=== PATIENT | female | born 2000 | race Caucasian/White ===

== ENCOUNTER 2023-05-17 21:14 | Emergency (ER) | payer MEDICAID ==
[~2023-05-17] VITALS: Ht 162.6 cm; Wt 73.0 kg
[2023-05-17 21:34] VITALS: BP 104/63; PULSE 56; RESP 17; TEMP 98.2; O2SAT 100
[2023-05-17 22:09] LABS: HCG SCREEN NEGATIVE
== END 2023-05-18 00:19 | disposition home or self-care (01) ==
LOC: ER 21:14
DX: N93.8 Other specified abnormal uterine and vaginal bleeding (principal); R10.2 Pelvic and perineal pain
CPT/HCPCS: 76830; 76856; 81025; 84703; 99284

== ENCOUNTER 2023-10-31 07:13 | Emergency (ER) | payer MEDICAID, OTHER ==
[~2023-10-31] VITALS: Ht 165.1 cm; Wt 62.0 kg
[2023-10-31 07:22] VITALS: O2SAT 98
[2023-10-31] MEDS ORDERED: CEFTRIAXONE SODIUM 500 MG/VIAL IM ONE (09:15)
[2023-10-31] MEDS ORDERED: LIDOCAINE HCL 1% 20ML VIAL (Pyxis) INJ INFIL ONE (09:15)
[2023-10-31 09:40] LABS: CLARITY URINE CLEAR (CLEAR); COLOR URINE YELLOW (YELLOW); GLUCOSE URINE NEGATIVE (NEGATIVE); KETONES URINE TRACE (NEGATIVE); LEUKOCYTE ESTERASE URINE NEGATIVE (NEGATIVE); NITRITE URINE NEGATIVE (NEGATIVE); OCCULT BLOOD URINE 1+ (NEGATIVE); PH URINE 5.5 (4.5-8.0); PROTEIN URINE NEGATIVE (NEGATIVE); SPECIFIC GRAVITY URINE 1.033 (1.005-1.030)
[2023-10-31 10:05] LABS: BACTERIA URINE 1+; MUCUS URINE 1+ /lpf (< = 2+); SQUAMOUS EPITHELIAL CELL URINE 1+ /lpf (RARE/1+)
[2023-10-31 10:06] LABS: RBC URINE 0-2 /hpf (0-2); WBC URINE 0-2 /hpf (0-2)
[2023-10-31 10:20] LABS: BASOPHILS % 0.8 % (0.0-2.0); DIFFERENTIAL COMMENT 0; EOSINOPHILS % 1.9 % (0.0-5.0); HEMATOCRIT. 36.7 % (36.0-48.0); HEMOGLOBIN. 11.7 g/dL (12.0-16.0); LYMPHOCYTES % 28.5 % (20.0-50.0); MEAN CORPUSCULAR HGB CONC 31.8 g/dL (31.0-37.0); MEAN CORPUSCULAR VOLUME 84.9 fL (81.0-99.0); MEAN PLATELET VOLUME 9.9 fl (7.4-10.4); NEUTROPHILS % 60.8 % (40.0-76.0); PLATELET 150 x1000/uL (130-400); RED BLOOD CELL COUNT 4.33 mill/uL (4.2-5.4); RED CELL DISTRIBUTION WIDTH 14.8 % (11.6-14.6); WHITE BLOOD COUNT 7.8 x1000/uL (4.5-11.0)
[2023-10-31 10:36] LABS: ALANINE AMINOTRANSFERASE < 7 IU/L (10-49); ALBUMIN 4.1 g/dL (3.2-4.8); ASPARTATE AMINOTRANSFERASE 13 IU/L (<34); B-HCG QUANTITATIVE 50 mIU/mL (<3); BILIRUBIN TOTAL 0.6 mg/dL (0.1-1.0); CALCIUM 9.1 mg/dL (8.7-10.4); CARBON DIOXIDE 23 mEq/L (21-32); CHLORIDE 106 mEq/L (98-107); CREATININE 0.7 mg/dL (0.6-1.0); GLUCOSE 105 mg/dL (70-105); POTASSIUM 3.8 mEq/L (3.5-5.1); PROTEIN TOTAL 7.3 g/dL (6.0-8.3); SODIUM 136 mEq/L (136-145); UREA NITROGEN BLOOD 8 mg/dL (9-23)
[2023-10-31] MEDS ORDERED: CEFTRIAXONE SODIUM 500 MG/VIAL IM NR (13:00)
[2023-10-31] MEDS ORDERED: LIDOCAINE HCL/PF 1% 10 MG/ML 5ML VIAL INFIL NR (13:00)
[2023-10-31 13:03] LABS: *AMPHETAMINES SCREEN URINE NEGATIVE (NEGATIVE); *BARBITURATES SCREEN URINE NEGATIVE (NEGATIVE); *BENZODIAZEPINES SCREEN URINE NEGATIVE (NEGATIVE); *COCAINE SCREEN URINE NEGATIVE (NEGATIVE); ECSTASY MDMA SCREEN URINE CONF.TEST INDICATED (NEGATIVE); METHADONE URINE SCREEN Neg (NEGATIVE); OPIATES URINE SCREEN NEGATIVE (NEGATIVE); PHENCYCLIDINE URINE SCREEN NEGATIVE (NEGATIVE)
[2023-10-31] MEDS ORDERED: AZIT1PAC9 MT (13:43)
[2023-10-31 14:01] VITALS: BP 129/76; PULSE 92; RESP 18; TEMP 98.6
[2023-11-02 04:09] LABS: CHLAMYDIA TRACHOMATIS NAA Negative (Negative); NEISSERIA GONORRHOEAE NAA Negative (Negative)
== END 2023-10-31 14:02 | disposition home or self-care (01) ==
LOC: ER 07:13
DX: J06.9 Acute upper respiratory infection, unspecified (principal); N39.0 Urinary tract infection, site not specified; J02.9 Acute pharyngitis, unspecified
CPT/HCPCS: 36415; 71045; 76801; 80053; 80305; 81003; 81025; 84702; 85025; 86850; 86900; 87491; 87591; 99284

== ENCOUNTER 2025-04-01 17:22 | Emergency (ER) | payer OTHER ==
[~2025-04-01] VITALS: Ht 165.1 cm; Wt 82.0 kg
[~2025-04-01 17:22] MED LIST: AZIT1PAC9 MT
[2025-04-01 17:23] VITALS: PULSE 105; RESP 18; O2SAT 98
[2025-04-01 17:27] VITALS: BP 115/64; TEMP 36.9; O2SAT 99
[2025-04-01 18:16] LABS: CLARITY URINE CLEAR (CLEAR); COLOR URINE YELLOW (YELLOW); GLUCOSE URINE NEGATIVE (NEGATIVE); KETONES URINE NEGATIVE (NEGATIVE); LEUKOCYTE ESTERASE URINE NEGATIVE (NEGATIVE); NITRITE URINE NEGATIVE (NEGATIVE); OCCULT BLOOD URINE NEGATIVE (NEGATIVE); PROTEIN URINE NEGATIVE (NEGATIVE); SPECIFIC GRAVITY URINE 1.011 (1.005-1.030)
== END 2025-04-01 20:37 | disposition home or self-care (01) ==
LOC: ER 17:22
DX: Z00.8 Encounter for other general examination (principal); F20.9 Schizophrenia, unspecified; F32.A Depression, unspecified; Z79.899 Other long term (current) drug therapy; Z91.011 Allergy to milk products
CPT/HCPCS: 81003; 81025; 99283

== ENCOUNTER 2025-04-11 17:56 | Emergency (ER) | payer OTHER ==
[~2025-04-11] VITALS: Ht 165.1 cm; Wt 78.0 kg
[2025-04-11 18:01] VITALS: O2SAT 98
[2025-04-11 18:04] VITALS: BP 102/69; PULSE 73; RESP 16; TEMP 36.7; O2SAT 98
[2025-04-11 19:42] LABS: CLARITY URINE CLOUDY (CLEAR); COLOR URINE DARK YELLOW (YELLOW); GLUCOSE URINE NEGATIVE (NEGATIVE); KETONES URINE TRACE (NEGATIVE); LEUKOCYTE ESTERASE URINE NEGATIVE (NEGATIVE); NITRITE URINE NEGATIVE (NEGATIVE); OCCULT BLOOD URINE NEGATIVE (NEGATIVE); PH URINE 5.5 (4.5-8.0); PROTEIN URINE TRACE (NEGATIVE); SPECIFIC GRAVITY URINE 1.039 (1.005-1.030)
[2025-04-11 19:54] LABS: BACTERIA URINE 1+; CALCIUM OXALATE CRYSTALS URINE 1+ /lpf; RBC URINE 0-2 /hpf (0-2); SQUAMOUS EPITHELIAL CELL URINE 2+ /lpf (RARE/1+); WBC URINE 0-2 /hpf (0-2)
[2025-04-11] MEDS: AZITHROMYCIN 500 MG TABLET PO ONE (20:08)
[2025-04-11] MEDS: CEFTRIAXONE SODIUM 500MG VIAL IM ONE (20:10)
[2025-04-11] MEDS: LIDOCAINE HCL 1% 20ML VIAL INFIL ONE (20:11)
[2025-04-11 20:35] LABS: HCG SCREEN NEGATIVE
[2025-04-11] MEDS ORDERED: IBUP-2029 MT (20:43)
== END 2025-04-11 21:56 | disposition left against medical advice (07) ==
LOC: ER 17:56
DX: N84.0 Polyp of corpus uteri (principal); R10.2 Pelvic and perineal pain; F20.9 Schizophrenia, unspecified; Z11.3 Encounter for screening for infections with a predominantly sexual mode of transmission; Z79.899 Other long term (current) drug therapy
CPT/HCPCS: 81003; 81025; 84703; 76830; 76856; 96372; 99285; J0696; Z7610 ×2

== ENCOUNTER 2025-04-27 01:43 | Emergency (ER) | payer OTHER ==
[~2025-04-27] VITALS: Ht 167.6 cm; Wt 66.0 kg
[~2025-04-27 01:43] MED LIST changes: +IBUP-2029 MT
[2025-04-27 02:04] VITALS: O2SAT 99
[2025-04-27 03:15] LABS: BASOPHILS % 0.8 % (0.0-2.0); EOSINOPHILS % 1.9 % (0.0-5.0); HEMATOCRIT. 38.6 % (36.0-48.0); HEMOGLOBIN. 12.6 g/dL (12.0-16.0); LYMPHOCYTES % 29.7 % (20.0-50.0); MEAN PLATELET VOLUME 10.1 fl (7.4-10.4); MONOCYTES % 8.5 % (2.0-8.0); NEUTROPHILS % 59.1 % (40.0-76.0); PLATELET 164 x1000/uL (130-400); RED BLOOD CELL COUNT 4.69 mill/uL (4.2-5.4); RED CELL DISTRIBUTION WIDTH 13.5 % (11.6-14.6)
[2025-04-27 03:30] LABS: CREATININE 0.9 mg/dL (0.6-1.0); UREA NITROGEN BLOOD 12 mg/dL (9-23)
[2025-04-27 03:31] LABS: ETHANOL BLOOD < 10 mg/dL (<10)
[2025-04-27 03:32] LABS: PHOSPHORUS 3.3 mg/dL (2.5-4.9)
[2025-04-27 03:46] LABS: HCG SCREEN NEGATIVE
[2025-04-27] MEDS: POTASSIUM CHLORIDE 20MEQ/PACKET PO ONE (04:47)
[2025-04-27 05:47] VITALS: BP 113/69; PULSE 78; RESP 13; TEMP 37.1; O2SAT 99
== END 2025-04-27 05:48 | disposition home or self-care (01) ==
LOC: ER 01:43
DX: G62.9 Polyneuropathy, unspecified (principal); F20.9 Schizophrenia, unspecified; F41.9 Anxiety disorder, unspecified; Z79.899 Other long term (current) drug therapy
CPT/HCPCS: 36415; 80048; 80320; 83735; 84100; 84703; 85025; 99283; G0480

== ENCOUNTER 2025-06-17 16:52 | Emergency (ER) | payer OTHER ==
[~2025-06-17] VITALS: Ht 162.6 cm; Wt 57.0 kg
[2025-06-17 16:57] VITALS: BP 101/59; PULSE 66; RESP 16; TEMP 36.8; O2SAT 100
[2025-06-17 17:26] LABS: CLARITY URINE CLEAR (CLEAR); COLOR URINE YELLOW (YELLOW); GLUCOSE URINE NEGATIVE (NEGATIVE); KETONES URINE TRACE (NEGATIVE); LEUKOCYTE ESTERASE URINE NEGATIVE (NEGATIVE); NITRITE URINE NEGATIVE (NEGATIVE); OCCULT BLOOD URINE NEGATIVE (NEGATIVE); PH URINE 5.5 (4.5-8.0); PROTEIN URINE NEGATIVE (NEGATIVE); SPECIFIC GRAVITY URINE 1.014 (1.005-1.030); UROBILINOGEN URINE 0.2 E.U./dL (0.2-1.0)
[2025-06-17 17:31] LABS: BASOPHILS % 0.6 % (0.0-2.0); EOSINOPHILS % 0.6 % (0.0-5.0); HEMATOCRIT. 31.6 % (36.0-48.0); HEMOGLOBIN. 10.5 g/dL (12.0-16.0); LYMPHOCYTES % 23.3 % (20.0-50.0); MEAN PLATELET VOLUME 10.1 fl (7.4-10.4); MONOCYTES % 8.8 % (2.0-8.0); NEUTROPHILS % 66.7 % (40.0-76.0); PLATELET 139 x1000/uL (130-400); RED BLOOD CELL COUNT 3.85 mill/uL (4.2-5.4); RED CELL DISTRIBUTION WIDTH 13.4 % (11.6-14.6)
[2025-06-17 17:34] LABS: *AMPHETAMINES SCREEN URINE NEGATIVE (NEGATIVE); *BARBITURATES SCREEN URINE NEGATIVE (NEGATIVE); *BENZODIAZEPINES SCREEN URINE NEGATIVE (NEGATIVE); *COCAINE SCREEN URINE NEGATIVE (NEGATIVE); METHADONE URINE SCREEN NEGATIVE (NEGATIVE)
[2025-06-17 17:35] LABS: CANNABINOID URINE SCREEN PRESUMPTIVE POSITIVE (NEGATIVE); ECSTASY MDMA SCREEN URINE NEGATIVE (NEGATIVE); OPIATES URINE SCREEN NEGATIVE (NEGATIVE); PHENCYCLIDINE URINE SCREEN NEGATIVE (NEGATIVE)
[2025-06-17 17:48] LABS: CREATININE 0.6 mg/dL (0.6-1.0); UREA NITROGEN BLOOD < 5 mg/dL (9-23)
[2025-06-17 17:50] LABS: ASPARTATE AMINOTRANSFERASE 13 IU/L (<34); BILIRUBIN DIRECT 0.3 mg/dL (<=3.0); BILIRUBIN TOTAL 0.8 mg/dL (0.1-1.0)
[2025-06-17 17:51] LABS: PROTEIN TOTAL 6.7 g/dL (6.0-8.3)
[2025-06-17 18:37] LABS: B-HCG QUANTITATIVE 220038 mIU/mL (<6)
== END 2025-06-17 18:45 | disposition left against medical advice (07) ==
LOC: ER 16:52
DX: R10.30 Lower abdominal pain, unspecified (principal); Z79.899 Other long term (current) drug therapy; Z53.21 Procedure and treatment not carried out due to patient leaving prior to being seen by health care provider
CPT/HCPCS: 36415; 80048; 80076; 80305; 81003; 81025; 84702; 85025

== ENCOUNTER 2025-07-14 15:10 | Emergency (ER) | payer OTHER ==
[~2025-07-14 15:10] MED LIST changes: +IBUP-1455 MT; -IBUP-2029 MT
[2025-07-14 15:13] VITALS: PULSE 86; RESP 18; O2SAT 99
== END 2025-07-14 17:59 | disposition left against medical advice (07) ==
LOC: ER 15:10
DX: Z00.8 Encounter for other general examination (principal); Z53.21 Procedure and treatment not carried out due to patient leaving prior to being seen by health care provider

== ENCOUNTER 2025-09-28 18:46 | Emergency (ER) | payer OTHER ==
[~2025-09-28] VITALS: Ht 162.6 cm; Wt 55.0 kg
[2025-09-28 18:51] VITALS: TEMP 36.7; O2SAT 99
[2025-09-28 19:41] LABS: BASOPHILS % 0.4 % (0.0-2.0); EOSINOPHILS % 1.4 % (0.0-5.0); HEMATOCRIT. 29.9 % (36.0-48.0); HEMOGLOBIN. 9.5 g/dL (12.0-16.0); LYMPHOCYTES % 18.6 % (20.0-50.0); MEAN PLATELET VOLUME 10.7 fl (7.4-10.4); MONOCYTES % 9.8 % (2.0-8.0); NEUTROPHILS % 69.8 % (40.0-76.0); PLATELET 152 x1000/uL (130-400); RED BLOOD CELL COUNT 3.51 mill/uL (4.2-5.4); RED CELL DISTRIBUTION WIDTH 14.7 % (11.6-14.6)
[2025-09-28] MEDS: ACETAMINOPHEN 500MG TABLET PO ONE (19:44)
[2025-09-28 19:49] LABS: INR 0.9
[2025-09-28 19:56] LABS: CLARITY URINE CLOUDY (CLEAR); COLOR URINE YELLOW (YELLOW); GLUCOSE URINE NEGATIVE (NEGATIVE); KETONES URINE TRACE (NEGATIVE); LEUKOCYTE ESTERASE URINE NEGATIVE (NEGATIVE); NITRITE URINE NEGATIVE (NEGATIVE); OCCULT BLOOD URINE NEGATIVE (NEGATIVE); PH URINE 6.0 (4.5-8.0); PROTEIN URINE NEGATIVE (NEGATIVE); SPECIFIC GRAVITY URINE 1.024 (1.005-1.030); UROBILINOGEN URINE 1.0 E.U./dL (0.2-1.0)
[2025-09-28 20:02] LABS: CREATININE 0.5 mg/dL (0.6-1.0)
[2025-09-28 20:03] LABS: UREA NITROGEN BLOOD < 5 mg/dL (9-23)
[2025-09-28 20:04] LABS: ASPARTATE AMINOTRANSFERASE 17 IU/L (<34)
[2025-09-28 20:05] LABS: BILIRUBIN DIRECT < 0.1 mg/dL (<=3.0); BILIRUBIN TOTAL 0.3 mg/dL (0.1-1.0)
[2025-09-28 20:13] LABS: *AMPHETAMINES SCREEN URINE NEGATIVE (NEGATIVE); *BARBITURATES SCREEN URINE NEGATIVE (NEGATIVE); *BENZODIAZEPINES SCREEN URINE NEGATIVE (NEGATIVE); *COCAINE SCREEN URINE NEGATIVE (NEGATIVE); METHADONE URINE SCREEN NEGATIVE (NEGATIVE); OPIATES URINE SCREEN NEGATIVE (NEGATIVE); PHENCYCLIDINE URINE SCREEN NEGATIVE (NEGATIVE)
[2025-09-28 20:14] LABS: CANNABINOID URINE SCREEN PRESUMPTIVE POSITIVE (NEGATIVE); ECSTASY MDMA SCREEN URINE NEGATIVE (NEGATIVE)
[2025-09-28 20:15] LABS: B-HCG QUANTITATIVE 31150 mIU/mL (<6); ETHANOL BLOOD < 10 mg/dL (<10); PROTEIN TOTAL 6.3 g/dL (6.0-8.3)
[2025-09-28 20:24] LABS: HCG SCREEN POSITIVE
[2025-09-28 20:34] LABS: BACTERIA URINE NONE SEEN; RBC URINE NONE SEEN /hpf (0-2); SQUAMOUS EPITHELIAL CELL URINE FEW /lpf (RARE/1+); WBC URINE 0-2 /hpf (0-2)
[2025-09-28 20:35] LABS: MUCUS URINE TRACE /lpf (< = 2+)
[2025-09-28 20:59] VITALS: BP 96/52; PULSE 70; RESP 13; O2SAT 100
[2025-10-02 08:08] LABS: CHLAMYDIA TRACHOMATIS NAA Negative (Negative); NEISSERIA GONORRHOEAE NAA Negative (Negative)
== END 2025-09-28 21:17 ==
LOC: ER 18:46
DX: O46.92 Antepartum hemorrhage, unspecified, second trimester (principal); O99.342 Other mental disorders complicating pregnancy, second trimester; F20.9 Schizophrenia, unspecified; Z3A.24 24 weeks gestation of pregnancy; Z79.899 Other long term (current) drug therapy
CPT/HCPCS: 76815; 80048; 80076; 80305; 80320; 81003; 81025; 83735; 84702; 84703; 85025; 86592; 86850; 86900; 87340; 87491; 87591; 99285; G0480

== ENCOUNTER 2025-10-12 00:29 | Emergency (ER) | payer OTHER ==
[~2025-10-12] VITALS: Ht 162.6 cm; Wt 55.0 kg
[2025-10-12 00:31] VITALS: O2SAT 98
[2025-10-12 01:17] LABS: BASOPHILS % 0.4 % (0.0-2.0); EOSINOPHILS % 1.4 % (0.0-5.0); HEMATOCRIT. 29.9 % (36.0-48.0); HEMOGLOBIN. 9.7 g/dL (12.0-16.0); LYMPHOCYTES % 15.7 % (20.0-50.0); MEAN PLATELET VOLUME 10.8 fl (7.4-10.4); MONOCYTES % 8.4 % (2.0-8.0); NEUTROPHILS % 74.1 % (40.0-76.0); PLATELET 146 x1000/uL (130-400); RED BLOOD CELL COUNT 3.53 mill/uL (4.2-5.4); RED CELL DISTRIBUTION WIDTH 14.3 % (11.6-14.6)
[2025-10-12 01:25] LABS: CREATININE 0.6 mg/dL (0.6-1.0); UREA NITROGEN BLOOD < 5 mg/dL (9-23)
[2025-10-12 01:26] LABS: ETHANOL BLOOD < 10 mg/dL (<10); PROTEIN TOTAL 6.4 g/dL (6.0-8.3)
[2025-10-12 01:27] LABS: ASPARTATE AMINOTRANSFERASE 21 IU/L (<34); BILIRUBIN DIRECT < 0.1 mg/dL (<=3.0)
[2025-10-12 01:28] LABS: BILIRUBIN TOTAL 0.3 mg/dL (0.1-1.0); HCG SCREEN POSITIVE
[2025-10-12] MEDS: ACETAMINOPHEN 1000MG/100ML 100 ML IV ONE (01:38)
[2025-10-12 01:39] LABS: INR 0.9
[2025-10-12 01:43] LABS: B-HCG QUANTITATIVE 20968 mIU/mL (<6)
[2025-10-12 02:32] LABS: CLARITY URINE CLEAR (CLEAR); COLOR URINE YELLOW (YELLOW); GLUCOSE URINE NEGATIVE (NEGATIVE); KETONES URINE NEGATIVE (NEGATIVE); LEUKOCYTE ESTERASE URINE NEGATIVE (NEGATIVE); NITRITE URINE NEGATIVE (NEGATIVE); OCCULT BLOOD URINE NEGATIVE (NEGATIVE); PH URINE 6.5 (4.5-8.0); PROTEIN URINE 1+ (NEGATIVE); SPECIFIC GRAVITY URINE 1.007 (1.005-1.030); UROBILINOGEN URINE 0.2 E.U./dL (0.2-1.0)
[2025-10-12 04:13] LABS: *AMPHETAMINES SCREEN URINE NEGATIVE (NEGATIVE); *BARBITURATES SCREEN URINE NEGATIVE (NEGATIVE); *BENZODIAZEPINES SCREEN URINE NEGATIVE (NEGATIVE); *COCAINE SCREEN URINE NEGATIVE (NEGATIVE); CANNABINOID URINE SCREEN PRESUMPTIVE POSITIVE (NEGATIVE); ECSTASY MDMA SCREEN URINE NEGATIVE (NEGATIVE); METHADONE URINE SCREEN NEGATIVE (NEGATIVE); OPIATES URINE SCREEN NEGATIVE (NEGATIVE); PHENCYCLIDINE URINE SCREEN NEGATIVE (NEGATIVE)
[2025-10-12 05:12] LABS: BACTERIA URINE NONE SEEN; RBC URINE NONE SEEN /hpf (0-2); SQUAMOUS EPITHELIAL CELL URINE NONE SEEN /lpf (RARE/1+); WBC URINE NONE SEEN /hpf (0-2); YEAST URINE NONE SEEN
[2025-10-12 05:24] VITALS: BP 105/54; PULSE 85; RESP 13; TEMP 36.9; O2SAT 100
== END 2025-10-12 05:39 | disposition short-term general hospital (02) ==
LOC: ER 00:29 → CANBEDREQ 01:53 → ER 05:39
DX: O26.892 Other specified pregnancy related conditions, second trimester (principal); R10.20 Pelvic and perineal pain unspecified side; O99.342 Other mental disorders complicating pregnancy, second trimester; F20.9 Schizophrenia, unspecified; Z3A.26 26 weeks gestation of pregnancy; Z79.899 Other long term (current) drug therapy
CPT/HCPCS: 36415; 76815; 80048; 80076; 80305; 80320; 81003; 83735; 84702; 84703; 85025; 86850; 86900; 96374; 99285; G0480; J0131